=== PATIENT | male | born 1955 | race Hispanic/Latino ===

== ENCOUNTER 2023-12-02 12:49 | Emergency (ER) | payer MEDICARE ==
[~2023-12-02] VITALS: Ht 175.3 cm; Wt 88.5 kg
[2023-12-02 16:13] LABS: BASOPHILS # (AUTO) 0.08 K/uL (0.00-0.20); EOSINOPHILS # (AUTO) 0.07 K/uL (0.00-0.70); EOSINOPHILS % (AUTO) 0.9 % (0.0-8.0); HEMATOCRIT 44.1 % (42-54); IMMATURE GRANULOCYTE ABSOLUTE 0.03 K/uL (0-1); LYMPHOCYTES # (AUTO) 1.2 K/uL (1.0-4.8); LYMPHOCYTES % (AUTO) 15.1 % (21.0-51.0); MEAN CORPUSCULAR HEMOGLOBIN 30.6 pg (27.0-33.0); MEAN CORPUSCULAR HGB CONC 34.9 g/dL (32.0-36.0); MEAN CORPUSCULAR VOLUME 87.7 fL (79-99); MONOCYTES # (AUTO) 0.8 K/uL (0.1-1.0); MONOCYTES % (AUTO) 9.3 % (3.0-13.0); NEUTROPHILS % (AUTO) 73.3 % (40.0-77.0); PLATELET COUNT (AUTO) 316 K/uL (130-400); RED BLOOD CELL COUNT(AUTO) 5.03 MIL/uL (4.50-6.20); RED CELL DISTRIBUTION WIDTH 12.4 % (11.0-15.5); WHITE BLOOD COUNT (AUTO) 8.2 K/uL (4.8-10.8)
[2023-12-02 16:20] LABS: POTASSIUM 3.7 mmol/L (3.5-5.1)
[2023-12-02 17:15] VITALS: BP 159/71; PULSE 65; RESP 18; O2SAT 98
== END 2023-12-02 17:39 | disposition home or self-care (01) ==
LOC: EDH 12:49
DX: S86.911A Strain of unspecified muscle(s) and tendon(s) at lower leg level, right leg, initial encounter (principal); M71.21 Synovial cyst of popliteal space [Baker], right knee; M79.661 Pain in right lower leg; E78.00 Pure hypercholesterolemia, unspecified; I10 Essential (primary) hypertension; X58.XXXA Exposure to other specified factors, initial encounter; Y93.89 Activity, other specified; Y92.89 Other specified places as the place of occurrence of the external cause; Y99.8 Other external cause status
CPT/HCPCS: 36415; 80048; 85025; 85378; 93971